=== PATIENT | female | born 1955 | race Caucasian/White ===

== ENCOUNTER 2021-09-08 14:15 | Inpatient (IN) ==
[2021-09-08] MEDS ORDERED: Ondansetron ODT 4 mg TAB 4 MG TAB PO ONE (14:35)
[2021-09-08] MEDS ORDERED: Ondansetron ODT 4 mg TAB 4 MG TAB ONE (14:41)
[2021-09-08 16:06] LABS: ABS Basophils 0.1 10^3/ul (0-0.2); ABS Lymphocytes 1.8 10^3/ul (1.0-4.8); ABS Monocytes 1.5 10^3/ul (0-0.8); ABS Neutrophils 16.6 10^3/ul (1.5-7.7); Hematocrit 43 % (35-47); Hemoglobin 14.8 g/dL (12.0-16.0); Lymphocyte % 8.8 %; Mean Corpuscular HGB Conc 35 g/dL (31-36); Mean Corpuscular Hemoglobin 31 pg (27-31); Mean Corpuscular Volume 90 fL (80-97); Platelet Count 283 10^3/uL (150-450); Red Blood Count 4.78 10^6 /uL (3.70-4.87); Red Cell Distribution Width 13 % (10-15)
[2021-09-08 16:27] LABS: ALT 21 U/L (7-52); AST 14 U/L (13-39); Albumin 4.2 g/dL (3.2-5.2); Albumin/Globulin Ratio 1.6 (1-3); Alkaline Phosphatase 58 U/L (35-149); Amylase 19 U/L (29-103); Anion Gap 9 mmol/L (2-11); Blood Urea Nitrogen 15 mg/dL (6-24); C Reactive Protein 208.42 mg/L (<8.01); CO2 Carbon Dioxide 25 mmol/L (22-32); Calcium 9.4 mg/dL (8.6-10.3); Chloride 99 mmol/L (101-111); Globulin 2.7 g/dL (2-4); Glucose 146 mg/dL (70-100); Lipase < 10 U/L (11.0-82.0); Potassium 3.6 mmol/L (3.5-5.0); Sodium 133 mmol/L (135-145); Total Protein 6.9 g/dL (6.4-8.9); Troponin I 0.01 ng/mL (<0.03)
[2021-09-08] MEDS ORDERED: Iohexol 300 (CONTRAST) 10 ML SDV IV ONE (16:35)
[2021-09-08] MEDS ORDERED: Lactated Ringers 1000 ml BAG IV.FLUID IV ONE (17:22)
[2021-09-08 18:25] LABS: Urine Appearance Cloudy; Urine Bilirubin Negative (Negative); Urine Blood 3+ (Negative); Urine Color Straw; Urine Glucose Negative (Negative); Urine Ketones Negative (Negative); Urine Nitrite Negative (Negative); Urine Protein Negative (Negative); Urine Specific Gravity 1.004 (1.002-1.030); Urine Urobilinogen Negative (Negative)
[2021-09-08 18:34] LABS: Urine Bacteria Absent (Absent); Urine Red Blood Cell 2+(6-10/hpf) (Absent); Urine Squamous Epithelial Cell Present (Absent); Urine White Blood Cell 2+(11-20/hpf) (Absent)
[2021-09-08] MEDS ORDERED: Piperacillin/Tazobac ADVAN 3.375 GM in NS 0.9% 100 ml BAG 100 ML IV ONE ×2 (19:33→20:59)
[2021-09-08] MEDS ORDERED: Zosyn per Pharmacy NOTE FOLLOW UP SCH (21:00)
[2021-09-08] MEDS ORDERED: Pantoprazole VIAL 40 MG VIAL IV ONE (21:03)
[2021-09-08 21:22] LABS: Magnesium 2.2 mg/dL (1.9-2.7)
[2021-09-09] MEDS: Lactated Ringers 1000 ml BAG 1,000 ML IV SCH (01:30)
[2021-09-09] MEDS: Ondansetron 4 mg VIAL 2 MG/ML 2 ml VIAL IV PRN ×4 (01:31→22:46)
[2021-09-09] MEDS ORDERED: ZOSYN 3.375 GM x ONE DOSE over 30 miuntes IV (02:00)
[2021-09-09 02:20] LABS: Hematocrit 39 % (35-47); Hemoglobin 13.8 g/dL (12.0-16.0)
[2021-09-09 06:22] LABS: Hematocrit 38 % (35-47); Hemoglobin 13.2 g/dL (12.0-16.0); Mean Corpuscular HGB Conc 35 g/dL (31-36); Mean Corpuscular Hemoglobin 31 pg (27-31); Mean Corpuscular Volume 90 fL (80-97); Platelet Count 217 10^3/uL (150-450); Red Blood Count 4.21 10^6 /uL (3.70-4.87); Red Cell Distribution Width 13 % (10-15); White Blood Count 18.2 10^3/uL (3.5-10.8)
[2021-09-09] MEDS ORDERED: ZOSYN 3.375 GM Q8H per EXTENDED INFUSION IV SCH (06:30)
[2021-09-09 06:38] LABS: Albumin 3.5 g/dL (3.2-5.2); Albumin/Globulin Ratio 1.3 (1-3); Calcium 8.5 mg/dL (8.6-10.3); Direct Bilirubin 0.2 mg/dL (0.03-0.18); Globulin 2.6 g/dL (2-4); Indirect Bilirubin 0.7 mg/dL (0.3-1.0); Potassium 3.3 mmol/L (3.5-5.0); Total Bilirubin 0.9 mg/dL (0.2-1.0); Total Protein 6.1 g/dL (6.4-8.9)
[2021-09-09 09:58] LABS: ABS Lymphocytes 1.2 10^3/ul (1.0-4.8); ABS Monocytes 1.5 10^3/ul (0-0.8); ABS Neutrophils 15.5 10^3/ul (1.5-7.7); Lymphocyte % 6.3 %
[2021-09-09] MEDS: Pantoprazole VIAL 40 MG VIAL IV SCH (10:37)
[2021-09-09] MEDS: Fluticasone NASAL SPRAY 50MCG 16 gm SPRAY BTL INTRANASAL SCH (10:59)
[2021-09-09] MEDS ORDERED: Potassium Chloride LIQUID 20 MEQ/15 ML LIQUID PO ONE ×2 (11:39→15:00)
[2021-09-09] MEDS: Cefepime 2 GM in Dextrose 2 GM/50 ML BAG IV SCH (13:31)
[2021-09-09] MEDS: metroNIDAZOLE IV 500 MG/100ML 500 MG/100 ML BAG IVPB SCH ×3 (14:24→22:32)
[2021-09-10] MEDS: Cefepime 2 GM in Dextrose 2 GM/50 ML BAG IV SCH ×2 (01:40→13:12)
[2021-09-10] MEDS: Lactated Ringers 1000 ml BAG 1,000 ML IV SCH (03:42)
[2021-09-10] MEDS: metroNIDAZOLE IV 500 MG/100ML 500 MG/100 ML BAG IVPB SCH ×3 (05:33→21:21)
[2021-09-10 06:40] LABS: Hematocrit 36 % (35-47); Hemoglobin 12.5 g/dL (12.0-16.0); Mean Corpuscular HGB Conc 35 g/dL (31-36); Mean Corpuscular Hemoglobin 32 pg (27-31); Mean Corpuscular Volume 90 fL (80-97); Platelet Count 235 10^3/uL (150-450); Red Blood Count 3.97 10^6 /uL (3.70-4.87); Red Cell Distribution Width 13 % (10-15); White Blood Count 15.1 10^3/uL (3.5-10.8)
[2021-09-10 06:51] LABS: Calcium 8.4 mg/dL (8.6-10.3); Potassium 3.2 mmol/L (3.5-5.0)
[2021-09-10] MEDS ORDERED: Potassium Chlor 20 meq TAB.ER PO ONE (07:00)
[2021-09-10] MEDS: Fluticasone NASAL SPRAY 50MCG 16 gm SPRAY BTL INTRANASAL SCH (08:46)
[2021-09-10 09:44] LABS: Magnesium 2.2 mg/dL (1.9-2.7)
[2021-09-10] MEDS: Pantoprazole VIAL 40 MG VIAL IV SCH (11:30)
[2021-09-10] MEDS: Ondansetron 4 mg VIAL 2 MG/ML 2 ml VIAL IV PRN ×2 (11:30→15:48)
[2021-09-10] MEDS: Prochlorperazine 5 mg/ml 2 ml VIAL (10 mg) IV PRN (21:24)
[2021-09-11] MEDS: Cefepime 2 GM in Dextrose 2 GM/50 ML BAG IV SCH ×2 (00:55→12:53)
[2021-09-11] MEDS: Prochlorperazine 5 mg/ml 2 ml VIAL (10 mg) IV PRN ×2 (04:08→12:44)
[2021-09-11] MEDS: metroNIDAZOLE IV 500 MG/100ML 500 MG/100 ML BAG IVPB SCH ×2 (05:28→13:47)
[2021-09-11 06:21] LABS: ABS Eosinophils 0.1 10^3/ul (0-0.6); ABS Lymphocytes 1.2 10^3/ul (1.0-4.8); ABS Monocytes 0.8 10^3/ul (0-0.8); Eosinophil % 0.5 %; Hematocrit 34 % (35-47); Hemoglobin 11.8 g/dL (12.0-16.0); Lymphocyte % 10.5 %; Mean Corpuscular HGB Conc 35 g/dL (31-36); Mean Corpuscular Hemoglobin 31 pg (27-31); Mean Corpuscular Volume 89 fL (80-97); Mean Platelet Volume 6.8 fL (7.4-10.4); Platelet Count 255 10^3/uL (150-450); Red Blood Count 3.83 10^6 /uL (3.70-4.87); Red Cell Distribution Width 13 % (10-15); White Blood Count 11.1 10^3/uL (3.5-10.8)
[2021-09-11 06:31] LABS: Calcium 8.2 mg/dL (8.6-10.3); Potassium 2.9 mmol/L (3.5-5.0)
[2021-09-11] MEDS ORDERED: Potassium Chlor 20 meq TAB.ER PO ONE ×3 (07:02→16:00)
[2021-09-11] MEDS: Pantoprazole VIAL 40 MG VIAL IV SCH (08:04)
[2021-09-11] MEDS ORDERED: Lactated Ringers 1000 ml BAG 1,000 ML IV SCH (10:00)
[2021-09-11] MEDS ORDERED: Potassium Chloride IV 40 MEQ in Lactated Ringers 1000 ml BAG 1,000 ML IVPB SCH (10:00)
[2021-09-11] MEDS: Fluticasone NASAL SPRAY 50MCG 16 gm SPRAY BTL INTRANASAL SCH (10:13)
[2021-09-11] MEDS: Ondansetron 4 mg VIAL 2 MG/ML 2 ml VIAL IV PRN (10:13)
[2021-09-11 13:52] VITALS: BP 101/53
[2021-09-11] MEDS ORDERED: Mometasone 220 MCG MDI INH SCH (21:00)
== END 2021-09-11 16:00 | disposition home or self-care (01) | DRG 392 ==
LOC: ED 14:15 → SUATTDRO 20:55 → MED 20:55
PROVIDERS: ADMIT Internal Medicine; ATTEND Hospitalist